=== PATIENT | male | born 1935 | race Caucasian/White ===

== ENCOUNTER → 2017-02-23 | Outpatient (CLI) | payer BC ==
[~2017-02-23] MED LIST: AMLO-110 PO; SIMV20TA2 PO
[2017-02-23 11:06] LABS: HEMATOCRIT 45.1 % (42-52); MEAN CELL VOLUME 94.4 fL (80-100); MEAN CORPUSCULAR HEMOGLOBIN 32.6 pg (25-34); MEAN CORPUSCULAR HGB CONC 34.6 g/dl (32-36); MEAN PLATELET VOLUME 9.5 fL (7.4-10.4); PLATELET COUNT 250 K/uL (130-400); RED BLOOD COUNT 4.78 M/uL (4.7-6.1); WHITE BLOOD COUNT 6.85 K/uL (4.8-10.8)
[2017-02-23 11:29] LABS: ALT/SGPT 28 U/L (12-78); BLOOD UREA NITROGEN 12 mg/dl (7-18); CALCIUM 8.8 mg/dl (8.5-10.1); CARBON DIOXIDE 27 mmol/L (21-32); CHLORIDE 106 mmol/L (98-107); CHOLESTEROL 66 mg/dl (0-200); CREATININE 1.05 mg/dl (0.60-1.40); GLUCOSE 95 mg/dl (70-99); POTASSIUM 3.9 mmol/L (3.5-5.1); SODIUM 139 mmol/L (136-145); TRIGLYCERIDES 83 mg/dl (0-150); VERY LOW DENSITY LIPOPROT CALC 17 mg/dl
[2017-02-23 11:31] LABS: BASO % 0.6 %; BASO ABS # 0.04 K/uL (0-0.2); COMPLETE YES; EOS % 2.9 %; IG% 0.1 %; LYMPH % 55.5 %; MONO % 10.2 %; NEUT % 30.7 %
[2017-02-23 11:32] LABS: ALKALINE PHOSPHATASE 64 U/L (45-117); AST/SGOT 19 U/L (15-37); CHOLESTEROL/HDL RATIO 0.9; HDL CHOLESTEROL 76 mg/dl
== END | disposition home or self-care (01) ==
LOC: C.LABBC 07:58
PROVIDERS: ATTEND Internal Medicine
DX: Z51.81 Encounter for therapeutic drug level monitoring (principal); I10 Essential (primary) hypertension; E78.5 Hyperlipidemia, unspecified; E55.9 Vitamin D deficiency, unspecified

== ENCOUNTER → 2017-03-21 | Outpatient (CLI) | payer BC ==
--- NOTE | 2017-03-21 10:23 | DIAGNOSTIC IMAGING REPORT ---
CHEST 2 VIEWS ROUTINE HISTORY: R50.9 [id number] Mild shortness of breath COMPARISON: Chest 04/18/2014. FINDINGS: No focal lung consolidations to suggest pneumonia. No evidence for pulmonary edema. No pleural effusions. No pneumothorax. Mildly tortuous thoracic ureter, unchanged. The heart is normal in size. IMPRESSION: No acute process. Electronically signed by: Raymond Dutta M.D. 03/21/2017 10:22 AM Dictated Date/Time: 03/21/2017 10:20 AM
== END | disposition home or self-care (01) ==
LOC: C.RAD 09:52
PROVIDERS: ATTEND Internal Medicine
DX: R50.9 Fever, unspecified (principal); R06.02 Shortness of breath; R05 Cough

== ENCOUNTER 2017-08-22 10:09 | Emergency (ER) | payer BC ==
[~2017-08-22] VITALS: Ht 167.6 cm; Wt 96.1 kg
[2017-08-22 10:18] VITALS: TEMP 36.8; Ht 167.6 cm; Wt 96.1 kg
[2017-08-22] MEDS ORDERED: SODIUM CHLORIDE 0.9% 500ML 500 ML IV STA (10:32)
--- NOTE | 2017-08-22 10:33 | EMERGENCY ROOM VISIT NOTE ---
History Report prepared by Alfreda: Ashley Hernandez Under the Supervision of: Dr. Fidencio Rucker M.D. First contact with patient: 10:22 Chief Complaint: ABDOMINAL PAIN Stated Complaint: ABDOMINAL PAIN History of Present Illness The patient is a 82 year old male who presents to the Emergency Room with complaints of abdominal pain beginning at 0730 this morning. He notes his pain was sudden in onset and occurred as soon as he woke up. He describes his pain as pressure and states he had some penile pain but it is resolved. Pain was located over the right flank and radiated down to his right groin. He reports he has had 2 kidney stones in the past and states this feels similar. He has some associated back pain but denies any chest pain, SOB, or urinary symptoms. The patient has never had any past abdominal surgeries. Patient states currently has no pain. Source of History: patient Onset: 0730 this morning Position: abdomen Quality: pressure Timing: other (sudden) Associated Symptoms: + back pain, No chest pain, No SOB, No urinary symptoms Note: Positive resolved penile pain. Negative past abdominal surgeries Review of Systems See HPI for pertinent positives and negatives. A total of ten systems were reviewed and were otherwise negative. Past Medical & Surgical Medical Problems: (1) HTN (hypertension) (2) Kidney stone Family History Cancer FHx: kidney disease High blood pressure Social History Smoking Status: Former Smoker Smokeless Tobacco Use: No Alcohol Use: occasionally Housing Status: lives with significant other Occupation Status: retired Current/Historical Medications Scheduled Amlodipine (Norvasc), 5 MG PO DAILY Aspirin (Aspirin Ec), 81 MG PO DAILY Atorvastatin (Lipitor), 5 MG PO DAILY Cholecalciferol (Vitamin D3), 1,000 UNITS PO DAILY Levetiracetam (Keppra), 500 MG PO QPM Levetiracetam (Keppra), 250 MG PO QAM Levofloxacin (Levaquin), 500 MG PO DAILY Metronidazole (Flagyl), 500 MG PO TID Multiple Vitamins W/ Minerals (Centrum Silver), 1 TAB PO DAILY [place]-3 Fatty Acids (Fish Oil Triple Strength 1360 mg), 2,720 MG PO DAILY Simvastatin (Zocor), 20 MG PO QPM Allergies Coded Allergies: No Known Allergies (Unverified , NONE, 08/22/17) Physical Exam Vital Signs Date Time Temp Pulse Resp B/P (MAP) Pulse Ox O2 Delivery O2 Flow Rate FiO2 08/22/17 12:50 68 21 173/94 93 Room Air 08/22/17 11:51 68 22 168/91 93 Room Air 08/22/17 11:14 74 20 135/72 94 Room Air 08/22/17 10:52 75 08/22/17 10:18 36.8 68 20 152/81 93 Room Air Physical Exam Physical Exam GENERAL: He is oriented to person, place, and time. He appears well-developed and well-nourished. He does not appear distressed. ____ HENT: Exam performed. Head: Normocephalic and atraumatic. Right Ear: External ear normal. No mastoid tenderness. Left Ear: External ear normal. No mastoid tenderness. Mouth/Throat: The oropharynx is clear and moist. No trismus in the jaw. No dental abscesses or uvula swelling. No oropharyngeal exudate or tonsillar abscesses. ____ EYES: Conjunctivae and EOM are normal. Pupils are equal, round, and reactive to light. Right eye exhibits no discharge. Left eye exhibits no discharge. No scleral icterus. ____ NECK: Normal range of motion. Neck supple. No JVD present. No spinous process tenderness present. No carotid bruit present. No rigidity. No tracheal deviation and normal range of motion present. No Brudzinski's sign and no Kernig 's sign noted. ____ CV: Normal rate, regular rhythm, normal heart sounds and intact distal pulses. There is no peripheral edema. Palpable radial pulses bue. ____ PULM/CHEST: Effort normal and breath sounds normal. No respiratory distress. No stridor. He has no wheezes. He has no rales. Chest Wall: He exhibits no tenderness. ____ ABD: The abdomen is soft. Bowel sounds are normal. He has no distension. No mass is present. There is no tenderness. There is no rebound, no guarding, no Lynne's sign and no tenderness at McBurney's point. Rovsig negative MUSC/SKEL: Normal range of motion. There is no peripheral edema, tenderness or deformity. LYMPH: No cervical adenopathy. ____ NEURO: He is alert and oriented to person, place, and time. He has normal strength. No cranial nerve deficit or sensory deficit. Coordination and gait normal. GCS eye subscore is 4. GCS verbal subscore is 5. GCS motor subscore is 6. Cerebellar tests wnl. ____ SKIN: Skin is warm and dry. He is not diaphoretic. ____ PSYCH: He has a normal mood and affect. His behavior is normal. Judgment and thought content normal. ____ Medical Decision & Procedures ER Provider Diagnostic Interpretation: Radiology results as stated below per my review and radiologist interpretation: ABDOMEN AND PELVIS CT WITHOUT CONTRAST CT DOSE: 749.68 mGy.cm HISTORY: R flank pain r/o kidney stone NON CONTRAST PER DR RUCKER TECHNIQUE: Multiaxial CT images of the abdomen and pelvis were performed without contrast. A dose lowering technique was utilized adhering to the principles of ALARA. COMPARISON STUDY: Abdomen and pelvis CT 08/14/2009. FINDINGS: Mild interstitial thickening at the lung bases. There is a 6 cm subpleural nodule within the base of the right lower lobe. The left lung base is clear. No pneumoperitoneum. No pneumatosis. The unenhanced liver, spleen, adrenal glands, pancreas, and gallbladder are unremarkable. No renal or ureteral stones. Bilateral peripelvic renal cysts. Mild fullness within the right renal pelvis without hydronephrosis. The bladder is unremarkable. No retroperitoneal lymphadenopathy. Multiple colonic diverticula. There is a single inflamed diverticulum within the mid sigmoid colon on image 345 with mild surrounding fat stranding. This is consistent with acute sigmoid diverticulitis. No perforation or abscess identified at this time. Normal appendix. IMPRESSION: 1. Acute sigmoid diverticulitis. No perforation or abscess. 2. No renal or ureteral stones. No hydronephrosis. 3. No evidence for bowel obstruction. Electronically signed by: Raymond Dutta M.D. 08/22/2017 11:43 AM Laboratory Results 08/22/17 11:00 Red Blood Count 4.90, Mean Corpuscular Volume 92.4, Mean Corpuscular Hemoglobin 32.2, Mean Corpuscular Hemoglobin Concent 34.9, Mean Platelet Volume 9.2, Neutrophils (%) (Auto) 57.0, Lymphocytes (%) (Auto) 29.4, Monocytes (%) (Auto) 11.8, Eosinophils (%) (Auto) 1.1, Basophils (%) (Auto) 0.5, Neutrophils # (Auto ) 3.14, Lymphocytes # (Auto) 1.62, Monocytes # (Auto) 0.65, Eosinophils # (Auto ) 0.06, Basophils # (Auto) 0.03 08/22/17 11:00 Test 08/22/17 11:00 08/22/17 11:50 White Blood Count 5.51 K/uL (4.8-10.8) Red Blood Count 4.90 M/uL (4.7-6.1) Hemoglobin 15.8 g/dL (14.0-18.0) Hematocrit 45.3 % (42-52) Mean Corpuscular Volume 92.4 fL (80-100) Mean Corpuscular Hemoglobin 32.2 pg (25-34) Mean Corpuscular Hemoglobin Concent 34.9 g/dl (32-36) Platelet Count 238 K/uL (130-400) Mean Platelet Volume 9.2 fL (7.4-10.4) Neutrophils (%) (Auto) 57.0 % Lymphocytes (%) (Auto) 29.4 % Monocytes (%) (Auto) 11.8 % Eosinophils (%) (Auto) 1.1 % Basophils (%) (Auto) 0.5 % Neutrophils # (Auto) 3.14 K/uL (1.4-6.5) Lymphocytes # (Auto) 1.62 K/uL (1.2-3.4) Monocytes # (Auto) 0.65 K/uL (0.11-0.59) Eosinophils # (Auto) 0.06 K/uL (0-0.5) Basophils # (Auto) 0.03 K/uL (0-0.2) RDW Standard Deviation 42.5 fL (36.4-46.3) RDW Coefficient of Variation 12.6 % (11.5-14.5) Immature Granulocyte % (Auto) 0.2 % Immature Granulocyte # (Auto) 0.01 K/uL (0.00-0.02) Anion Gap 6.0 mmol/L (3-11) Est Creatinine Clear Calc Drug Dose 56.1 ml/min Estimated GFR () 71.0 Estimated GFR (Non- 61.3 BUN/Creatinine Ratio 10.7 (10-20) Calcium Level 8.5 mg/dl (8.5-10.1) Urine Color YELLOW Urine Appearance CLEAR (CLEAR) Urine pH 6.0 (4.5-7.5) Urine Specific [place] 1.019 (1.000-1.030) Urine Protein NEG (NEG) Urine Glucose (UA) NEG (NEG) Urine Ketones NEG (NEG) Urine Occult Blood 3+ (NEG) Urine Nitrite NEG (NEG) Urine Bilirubin NEG (NEG) Urine Urobilinogen NEG (NEG) Urine Leukocyte Esterase NEG (NEG) Urine WBC (Auto) 1-5 /hpf (0-5) Urine RBC (Auto) >30 /hpf (0-4) Urine Hyaline Casts (Auto) 1-5 /lpf (0-5) Urine Epithelial Cells (Auto) 5-10 /lpf (0-5) Urine Bacteria (Auto) NEG (NEG) Laboratory results reviewed by me Medications Administered Medications (Trade) Dose Ordered Sig/Baldo Route Start Time Stop Time Status Last Admin Dose Admin Sodium Chloride 500 ml @ 500 mls/hr Q1H STAT IV 08/22/17 10:32 08/22/17 11:31 DC 08/22/17 11:05 500 MLS/HR Metronidazole (Flagyl / Nss) 500 mg NOW STAT IV 08/22/17 11:53 08/22/17 11:54 DC 08/22/17 12:25 500 MG Levofloxacin (Levaquin Tab) 750 mg ONE ONCE PO 08/22/17 12:15 08/22/17 12:16 DC 08/22/17 12:25 750 MG Metronidazole (Flagyl Tab) 500 mg NOW STAT PO 08/22/17 13:04 08/22/17 13:05 DC 08/22/17 13:12 500 MG ED Course 1025: The patient was evaluated in room B11. A complete history and physical exam was performed. Patient reports no need for out analgesia at this time. 1032: Sodium Chloride 500 ml @ 500 mls/hr IV 1153: Ordered Flagyl/Nss 500 mg IV, Cipro/DSW 400 mg IV 1215: Ordered Levofloxacin 750 mg PO 1238: Vital signs stable. Labs within normal limits. CT does not show kidney stones but it does show diverticulitis. It is thought that the patient could have passed a small kidney stone on the right side given that there is some blood in his urine. His is concerned about receiving Cipro due to bad family reactions. I discussed this with them and explained to them that given that the patient has had no reactions himself, it should be safe for him to take Cipro. Despite this, the patient and the family member at bedside do not want to take Cipro, the patient will be discharged on Levofloxacin. The first dose was given in the ED and there were no adverse reactions. DISCHARGE - Plan of care discussed with patient and questions answered. The patient was given both verbal and printed discharge instructions. The patient verbalized understanding and ability to comply. The patient is to seek outpatient follow up as noted in the discharge instructions. The patient verbalized understanding and ability to comply. The patient is discharged in stable condition. The patient was instructed to return for worsening symptoms. 1304: Ordered Flagyl Tab 500 mg PO Medical Decision Vital signs stable. Labs within normal limits. CT does not show kidney stones but it does show diverticulitis. It is thought that the patient could have passed a small kidney stone on the right side given that there is some blood in his urine. His is concerned about receiving Cipro due to bad family reactions. I discussed this with them and explained to them that given that the patient has had no reactions himself, it should be safe for him to take Cipro. Despite this, the patient and the family member at bedside do not want to take Cipro, the patient will be discharged on Levofloxacin. The first dose was given in the ED and there were no adverse reactions. DISCHARGE - Plan of care discussed with patient and questions answered. The patient was given both verbal and printed discharge instructions. The patient verbalized understanding and ability to comply. The patient is to seek outpatient follow up as noted in the discharge instructions. The patient verbalized understanding and ability to comply. The patient is discharged in stable condition. The patient was instructed to return for worsening symptoms. Medication Reconcilliation Current Medication List: was personally reviewed by me Blood Pressure Screening Patient's blood pressure: Elevated blood pressure Blood pressure disposition: Elevated BP felt to be situational Impression Primary Impression: Diverticulitis Scribe Attestation The scribe's documentation has been prepared under my direction and personally reviewed by me in its entirety. I confirm that the note above accurately reflects all work, treatment, procedures, and medical decision making performed by me. The chart was completed utilizing [employer] Speech voice recognition software. Grammatical errors, random word insertions, pronoun errors, and incomplete sentences are an occasional consequence of this system due to software limitations, ambient noise, and hardware issues. Any formal questions or concerns about the content, text, or information contained within the body of this dictation should be directly addressed to the physician for clarification. Departure Information Dispostion Home / Self-Care Prescriptions Metronidazole (FLAGYL) 500 Mg Tab 500 MG PO TID for 7 Days, #21 TAB Prov: Fidencio Rucker M.D. 08/22/17 Levofloxacin (Levaquin) 500 Mg Tab 500 MG PO DAILY for 7 Days, #7 TAB Prov: Fidencio Rucker M.D. 08/22/17 Referrals Zion Walsh M.D. (PCP) Forms HOME CARE DOCUMENTATION FORM, IMPORTANT VISIT INFORMATION Patient Instructions [facility]
[2017-08-22 11:10] LABS: BASO % 0.5 %; BASO ABS # 0.03 K/uL (0-0.2); EOS % 1.1 %; EOS ABS # 0.06 K/uL (0-0.5); HEMATOCRIT 45.3 % (42-52); HEMOGLOBIN 15.8 g/dL (14.0-18.0); IG# 0.01 K/uL (0.00-0.02); LYMPH % 29.4 %; LYMPH ABS # 1.62 K/uL (1.2-3.4); MEAN CELL VOLUME 92.4 fL (80-100); MEAN CORPUSCULAR HEMOGLOBIN 32.2 pg (25-34); MEAN CORPUSCULAR HGB CONC 34.9 g/dl (32-36); MEAN PLATELET VOLUME 9.2 fL (7.4-10.4); MONO % 11.8 %; MONO ABS # 0.65 K/uL (0.11-0.59); NEUT ABS # 3.14 K/uL (1.4-6.5); PLATELET COUNT 238 K/uL (130-400); RED CELL DISTRIBUTION WIDTH CV 12.6 % (11.5-14.5); RED CELL DISTRIBUTION WIDTH SD 42.5 fL (36.4-46.3); WHITE BLOOD COUNT 5.51 K/uL (4.8-10.8)
[2017-08-22 11:27] LABS: CALCIUM 8.5 mg/dl (8.5-10.1); CREATININE 1.12 mg/dl (0.60-1.40)
[2017-08-22] MEDS ORDERED: OMEG-130 PO (11:43)
[2017-08-22] MEDS ORDERED: MULTCHW PO (11:43)
[2017-08-22] MEDS ORDERED: LEVE500T13 PO ×2 (11:43)
[2017-08-22] MEDS ORDERED: ATOR10TA82 PO (11:43)
[2017-08-22] MEDS ORDERED: ASPI81TA28 PO (11:43)
[2017-08-22] MEDS ORDERED: CHOL1000 PO (11:43)
--- NOTE | 2017-08-22 11:44 | DIAGNOSTIC IMAGING REPORT ---
ABDOMEN AND PELVIS CT WITHOUT CONTRAST CT DOSE: 749.68 mGy.cm HISTORY: R flank pain r/o kidney stone NON CONTRAST PER DR RUCKER TECHNIQUE: Multiaxial CT images of the abdomen and pelvis were performed without contrast. A dose lowering technique was utilized adhering to the principles of ALARA. COMPARISON STUDY: Abdomen and pelvis CT 08/14/2009. FINDINGS: Mild interstitial thickening at the lung bases. There is a 6 cm subpleural nodule within the base of the right lower lobe. The left lung base is clear. No pneumoperitoneum. No pneumatosis. The unenhanced liver, spleen, adrenal glands, pancreas, and gallbladder are unremarkable. No renal or ureteral stones. Bilateral peripelvic renal cysts. Mild fullness within the right renal pelvis without hydronephrosis. The bladder is unremarkable. No retroperitoneal lymphadenopathy. Multiple colonic diverticula. There is a single inflamed diverticulum within the mid sigmoid colon on image 345 with mild surrounding fat stranding. This is consistent with acute sigmoid diverticulitis. No perforation or abscess identified at this time. Normal appendix. IMPRESSION: 1. Acute sigmoid diverticulitis. No perforation or abscess. 2. No renal or ureteral stones. No hydronephrosis. 3. No evidence for bowel obstruction. Electronically signed by: Raymond Dutta M.D. 08/22/2017 11:43 AM Dictated Date/Time: 08/22/2017 11:35 AM
[2017-08-22] MEDS ORDERED: CIPROFLOXACIN 400MG / 200ML D5W IV STA (11:53)
[2017-08-22] MEDS ORDERED: METRONIDAZOLE 500MG / 100ML NSS IV STA (11:53)
[2017-08-22] MEDS ORDERED: LEVOFLOXACIN 750 MG TAB PO ONE (12:15)
[2017-08-22] MEDS ORDERED: LEVO-366 PO (12:43)
[2017-08-22] MEDS ORDERED: METR500T PO (12:43)
[2017-08-22 12:50] VITALS: BP 173/94; PULSE 68; O2SAT 93
[2017-08-22] MEDS ORDERED: METRONIDAZOLE 250 MG TAB PO STA (13:04)
== END 2017-08-22 13:10 | disposition home or self-care (01) ==
LOC: C.EDB 10:10
DX: K57.32 Diverticulitis of large intestine without perforation or abscess without bleeding (principal); I10 Essential (primary) hypertension; Z87.442 Personal history of urinary calculi; Z87.891 Personal history of nicotine dependence; Z79.82 Long term (current) use of aspirin; Z79.899 Other long term (current) drug therapy